=== PATIENT | female | born 1990 | race Two or more races ===

== ENCOUNTER 2021-07-08 18:04 | Emergency (ER) | payer SELFPAY ==
[~2021-07-08] VITALS: Ht 167.6 cm; Wt 92.5 kg
[2021-07-08] MEDS ORDERED: IV NORMAL SALINE 1000 ML BAG IV ONE (18:30)
[2021-07-08] MEDS ORDERED: FAMOTIDINE. 20 MG/2 ML VIAL IV ONE ×2 (18:30→18:36)
[2021-07-08 18:54] LABS: HEMATOCRIT 35.7 % (31.2-41.9); MEAN CORPUSCULAR HEMOGLOBIN 30.4 uug (24.7-32.8); MEAN CORPUSCULAR VOLUME 88.7 fL (75.5-95.3); PLATELET COUNT (AUTO) 319 K/uL (179-408)
--- NOTE | 2021-07-08 18:54 | NUR ---
PT IS IN ROOM #1B. DR WILLIE ARMSTRONGLUATED TH PT.
[2021-07-08 18:59] LABS: CARBON DIOXIDE 25 mmol/L (21-32); CHLORIDE 101 mmol/L (98-107); CREATININE 0.9 mg/dL (0.6-1.3); GLUCOSE 88 mg/dL (74-106); POTASSIUM 3.9 mmol/L (3.5-5.1); UREA NITROGEN, BLOOD 8 mg/dL (7-18)
[2021-07-08 19:04] LABS: ETHANOL 87 MG/DL (0-0)
[2021-07-08 19:04] LABS: *BILIRUBIN,URIN NEGATIVE (NEGATIVE); *BLOOD, URINE 2+ (NEGATIVE); *CLARITY,URINE CLEAR (CLEAR); *COLOR,URINE YELLOW (YELLOW); *KETONES,URINE TRACE (NEGATIVE); *UROBILINOGEN,URINE 0.2 E.U./dl (NORMAL); LEUKOCYTE ESTERASE ,URINE TRACE (NEGATIVE); NITRITE, URINE NEGATIVE (NEGATIVE); PH,URINE 7.5 (5.0-8.0); UGLUCOSE NEGATIVE (NEGATIVE)
[2021-07-08 19:05] LABS: ACETAMINOPHEN < 2.0 ug/mL (10-30); ALANINE AMINOTRANSFERASE 28 U/L (14-59); ALKALINE PHOSPHATASE 84 U/L (50-136); ASPARTATE AMINOTRANSFERASE 31 U/L (15-37); BILIRUBIN,DIRECT 0.2 mg/dL (0.0-0.2); BILIRUBIN,TOTAL 0.7 mg/dL (0.2-1.0); TOTAL PROTEIN, SERUM 7.6 g/dL (6.4-8.2)
[2021-07-08 19:09] LABS: *AMPHETAMINE, URINE NEGATIVE (NEGATIVE); *CANNABINOID, URINE NEGATIVE (NEGATIVE); *COCCAINE, URINE NEGATIVE (NEGATIVE); *OPIATE, URINE NEGATIVE (NEGATIVE); *PHENCYCLIDINE SCREEN,URINE NEGATIVE (NEGATIVE)
[2021-07-08 19:14] LABS: *URINE HCG, QUAL NEGATIVE (NEGATIVE); BACTERIA,URINE NONE SEEN /HPF (NONE SEEN); WBC,URINE 0-3 /HPF (0-3)
[2021-07-08] MEDS ORDERED: ONDANSETRON 4 MG/2 ML VIAL ONE ×2 (19:24→21:39)
[2021-07-08] MEDS ORDERED: ONDANSETRON 4 MG/2 ML VIAL IV ONE ×3 (19:30→21:30)
[2021-07-08] MEDS ORDERED: PANTOPRAZOLE SODIUM 40 MG VIAL IV ONE (21:30)
[2021-07-08] MEDS ORDERED: PANTOPRAZOLE SODIUM 40 MG VIAL ONE (21:39)
--- NOTE | 2021-07-08 22:14 | NUR ---
RECEIVED CALL FROM POISON CONTROL, FOLLOWING UP ON PATIENT. ADVISED TO REPEAT BMP AFTER 4 HOURS OF INITAL DRAW, WILL INFORM DR. KERR.
[2021-07-08 23:12] LABS: BILIRUBIN,TOTAL 0.7 mg/dL (0.2-1.0); CREATININE 0.9 mg/dL (0.6-1.3); POTASSIUM 4.4 mmol/L (3.5-5.1)
--- NOTE | 2021-07-08 23:44 | NUR ---
CALLED CRISIS RESIDENT CARE TECHNICIAN LEANNE. WILL COME TO EVALUATE PATIENT.
--- NOTE | 2021-07-09 00:45 | NUR ---
LEANNE AT [facility] TO EVALUATE PATIENT.
--- NOTE | 2021-07-09 01:47 | NUR ---
PATIENT PALCED ON 5150 HOLD, WILL MONITOR PATIENT. AWAITING PLACEMENT.
--- NOTE | 2021-07-09 03:00 | NUR ---
Patient asleep at this time.
--- NOTE | 2021-07-09 05:29 | NUR ---
Spoke with mother per patient permission. Please contact mother (Johanny) at when patient is being transferred.
--- NOTE | 2021-07-09 07:34 | NUR ---
PT IS RESTING IN BED COMFORTAMBLY. NO S/S OF DISTRESS AT THIS TIME. CONTINUE TO MONITOR THE PT.
--- NOTE | 2021-07-09 09:18 | NUR ---
CRISIS MIDDLE SCHOOL ART TEACHER GALINDO AND INTAKE BUSINESS TRAINER ADEEL WERE COLLED TO VERIFY PT's MHU PLACEMENT.
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
--- NOTE | 2021-07-09 13:34 | NUR ---
PT WAS RE-EVALUATED BY CRISIS CARE PROFESSIONAL DIEGO. HOLD WAS D/C'd BY CRISIS CARE PROFESSIONAL GALINDO. PT WAS D/C'd FROM [facility] BY DR MELO. D/C INSTRUCTIONS GIVEN TO THE PT BY DR MELO AND CRISIS CARE PROFESSIONAL GALINDO. PT LEFT HOSPITAL BY TAXI.
[2021-07-09 13:43] VITALS: BP 129/77
== END 2021-07-09 13:46 | disposition home or self-care (01) ==
LOC: ER 18:06
DX: T45.0X2A Poisoning by antiallergic and antiemetic drugs, intentional self-harm, initial encounter (principal); T39.312A Poisoning by propionic acid derivatives, intentional self-harm, initial encounter; R40.0 Somnolence; Y92.830 Public park as the place of occurrence of the external cause; Z20.822 Contact with and (suspected) exposure to COVID-19; R11.0 Nausea; F10.10 Alcohol abuse, uncomplicated; Y90.4 Blood alcohol level of 80-99 mg/100 ml
CPT/HCPCS: 36415; 80048; 80053; 80076; 80299; 80307; 80320; 81001; 84703; 85025; 87426; 93005; 96361; 96374; 96375; 96376; 99285; C9113; J2405 ×3; J3490; A4663; G0480